=== PATIENT | female | born 1985 | race Caucasian/White ===

== ENCOUNTER → 2018-09-13 09:46 | Outpatient (CLI) | payer OTHER, SELFPAY ==
--- NOTE | 2018-09-13 | DI.RAD.S_ITS ---
PROCEDURE: XR CHEST 2V INDICATIONS: ASTHMA TECHNIQUE: 2 views of the chest were acquired. COMPARISON: None. FINDINGS: Surgical changes and devices: None. Lungs and pleura: No pleural effusions or pneumothorax. Lungs are clear. Mediastinum: Mediastinal contours are normal. Heart size is normal. Bones and chest wall: No suspicious bony abnormalities. Soft tissues appear unremarkable. IMPRESSION: Normal for age, source of current symptoms is not seen. Dictated by: Facundo White M.D. on 09/13/2018 at 9:59 Approved by: Facundo White M.D. on 09/13/2018 at 9:59
== END ==
PROVIDERS: PCP Physician Assistant; Visit Provider Physician Assistant
DX: J45.20 Mild intermittent asthma, uncomplicated (principal)
CPT/HCPCS: 71046

== ENCOUNTER → 2018-12-27 16:01 | Outpatient (CLI) | payer OTHER, SELFPAY ==
--- NOTE | 2018-12-27 | DI.US.S_ITS ---
PROCEDURE: US THYROID INDICATIONS: 1 YEAR FOLLOW UP THYROID NODULE TECHNIQUE: Real-time scanning was performed of the thyroid gland, with image documentation. COMPARISON: [facility], [place], THYROID, 01/18/2018, 16:38. FINDINGS: Right: Thyroid lobe measures 6.0 x 1.3 x 1.8 cm, and is homogeneous in echotexture. Left: Thyroid lobe measures 5.0 x 1.3 x 1.3 cm, and is homogenous in echotexture. Isthmus: 6.0 mm thick. Nodule number: 1 Location: Right mid Size: Unchanged at 1.2 x 0.9 x 1.4 cm. Composition: Predominantly solid Echogenicity: Hypoechoic Shape: wider than tall. Margins: Smooth Echogenic foci: Internal punctate echogenic foci Total points: 7 ACR TI-RADS category: Highly suspicious Nodule number: 2 Location: Left inferior Size: Unchanged at 1.0 x 0.7 x 1.4 cm. Composition: Predominantly solid Echogenicity: Hypoechoic Shape: wider than tall. Margins: Smooth Echogenic foci: Internal echogenic punctate foci Total points: 7 ACR TI-RADS category: Highly suspicious Nodule number: 3 Location: Isthmus Size: Unchanged at 0.9 x 0.5 x 1.1 cm. Composition: Predominantly solid Echogenicity: Hypoechoic Shape: wider than tall. Margins: Smooth Echogenic foci: None Total points: 4 ACR TI-RADS category: Moderately suspicious Nodule number: 4 Location: Left mid to superior Size: Unchanged at 0.8 x 0.5 x 0.8 cm. Composition: Predominantly solid Echogenicity: Hypoechoic Shape: wider than tall. Margins: Smooth Echogenic foci: Internal echogenic punctate foci Total points: 7 ACR TI-RADS category: Highly suspicious IMPRESSION: Stable appearance of bilateral thyroid nodules. Continued sonographic followup recommended. ACR TI-RADS definitions and recommendations: TI-RADS 1 (benign): 0 points. FNA not needed. TI-RADS 2 (not suspicious): 2 points. FNA not needed. TI-RADS 3 (mildly suspicious): 3 points. * FNA if 2.5 cm or larger, follow up if 1.5 cm or larger (at 1, 3, and 5 years). TI-RADS 4 (moderately suspicious): 4-6 points. * FNA if 1.5 cm or larger, follow up if 1 cm or larger (at 1, 2, 3, and 5 years). TI-RADS 5 (highly suspicious): 7 points or more. * FNA if 1 cm or larger, follow up if 0.5 cm or larger (every year for 5 years). Dictated by: Jose ROCK Interpreted: Bishop Heaton MD on 12/27/2018 at 16:56 Approved by: Bishop Heaton M.D. on 12/27/2018 at 18:40
== END ==
PROVIDERS: Family Provider Obstetrics & Gynecology; PCP Physician Assistant; Visit Provider Internal Medicine Endocrinology, Diabetes & Metabolism
DX: E04.2 Nontoxic multinodular goiter (principal)
CPT/HCPCS: 76536

== ENCOUNTER → 2019-08-28 17:08 | Outpatient (CLI) | payer OTHER, SELFPAY ==
--- NOTE | 2019-08-28 17:12 | DI.RAD.S_ITS ---
PROCEDURE: XR CHEST 2V INDICATIONS: Cough, Wheeze, SOB, decreased lung sounds, r/o pnuemonia TECHNIQUE: 2 views of the chest were acquired. COMPARISON: [facility], , XR CHEST 2V, 09/13/2018, 9:48. FINDINGS: Surgical changes and devices: None. Lungs and pleura: Lungs are clear. No pleural effusions or pneumothorax. Mediastinum: Mediastinal contours are normal. Heart size is normal. Bones and chest wall: No suspicious bony abnormalities. Soft tissues appear unremarkable. IMPRESSION: No acute cardiopulmonary pathology. Dictated by: Maycol Rosen M.D. on 08/28/2019 at 17:29 Approved by: Maycol Rosen M.D. on 08/28/2019 at 17:29
== END ==
PROVIDERS: Family Provider Obstetrics & Gynecology; PCP Physician Assistant; Visit Provider Nurse Practitioner
DX: R06.02 Shortness of breath (principal); R05 Cough; R06.2 Wheezing
CPT/HCPCS: 71046

== ENCOUNTER → 2019-12-12 17:12 | Outpatient (CLI) | payer OTHER, SELFPAY | PROVIDERS: Family Provider Obstetrics & Gynecology; PCP Physician Assistant; Visit Provider Physician Assistant | DX: R30.0 Dysuria (principal) | CPT/HCPCS: 87086 ==

== ENCOUNTER → 2019-12-21 12:06 | Outpatient (CLI) | payer OTHER, SELFPAY | PROVIDERS: Family Provider Obstetrics & Gynecology; PCP Nurse Practitioner; Visit Provider Nurse Practitioner | DX: Z11.3 Encounter for screening for infections with a predominantly sexual mode of transmission (principal); Z11.8 Encounter for screening for other infectious and parasitic diseases ==

== ENCOUNTER → 2020-01-11 15:06 | Outpatient (CLI) | payer OTHER, SELFPAY ==
[2020-01-11 15:14] LABS: Bacteria Urine None Seen
[2020-01-11 15:17] LABS: Appearance Urine UA CLEAR; Bilirubin Urine UA NEGATIVE (NEGATIVE); Color Urine UA YELLOW; Glucose Urine UA NEGATIVE (Negative); Ketones Urine UA NEGATIVE (NEGATIVE); Leukocyte Esterase Urine UA NEGATIVE (NEGATIVE); Nitrite Urine UA NEGATIVE (Negative); Occult Blood Urine UA NEGATIVE (Negative); Protein Urine UA NEGATIVE (Negative); Specific Gravity Urine UA 1.015 (1.000-1.035); Urobilinogen Urine UA 0.2 E.U./dL (0.2)
[2020-01-11 15:24] LABS: Culture Indicated Urine Cult Not Indicated; RBC Urine 0-1/HPF (0-5/HPF); Urine Comments Microscopic Normal; WBC Urine 0-1/HPF (0-5/HPF)
== END ==
PROVIDERS: Family Provider Obstetrics & Gynecology; PCP Nurse Practitioner; Visit Provider Nurse Practitioner
DX: R10.13 Epigastric pain (principal); R10.11 Right upper quadrant pain; R10.12 Left upper quadrant pain
CPT/HCPCS: 81001

== ENCOUNTER → 2020-01-12 08:03 | Outpatient (CLI) | payer OTHER, SELFPAY ==
--- NOTE | 2020-01-12 08:05 | DI.US.S_ITS ---
PROCEDURE: US ABDOMEN COMPLETE INDICATIONS: EPIGASTRIC PAIN. RUQ AND LUQ TECHNIQUE: Real-time scanning was performed of the abdominal and retroperitoneal organs, with image documentation. COMPARISON: None. FINDINGS: Liver: Liver is normal in size and homogeneous in echotexture. Gallbladder: No findings of gallstones or sludge are seen. The gallbladder wall is not thickened, measuring 3 mm or less. No specific pericholecystic fluid is seen. The sonographic Eaton sign is reported as positive. However, the patient is reported by the technologist as being tender throughout the abdomen. Therefore, the sonographic Eaton sign is regarded to be equivocal. Biliary ducts: Intrahepatic bile ducts are non-dilated. Extrahepatic bile duct caliber measures 3 mm. Normal is 6-7 mm or less in diameter, or 10 mm or less post-cholecystectomy. Pancreas: Visualized portions of the pancreas are sonographically normal. Spleen: Spleen is normal in size and homogeneous in echotexture. Kidneys: Kidneys are normal in size and echotexture. Right kidney measures 9.7 cm long; left kidney measures 10.2 cm long. No hydronephrosis or nephrolithiasis. No solid masses. Aorta: Visualized aorta is normal in caliber at less than 3 cm. Iliacs: Not seen. IVC: Intrahepatic inferior vena cava is patent. Miscellaneous: No free abdominal fluid. IMPRESSION: Normal appearing gallbladder. The sonographic Eaton sign is regarded to be equivocal, as this patient was tender while scanning over the abdomen. No biliary dilatation. Dictated by: Paolo Carlisle M.D. on 01/12/2020 at 8:21 Approved by: Paolo Carlisle M.D. on 01/12/2020 at 8:22
[2020-01-12 09:31] LABS: Add Manual Diff / Slide Review NO; Basophils Absolute Auto 0 /uL (0-100); Basophils Percent Auto 0.5 % (0-2); Eosinophils Absolute Auto 0 /uL (0-450); Eosinophils Percent Auto 0.5 % (2-4); Hematocrit 42.8 % (36-46); Hemoglobin 14.5 g/dL (12.0-16.0); Lymphocytes Absolute Auto 1400 /uL (1100-4500); Lymphocytes Percent Auto 28.1 % (25-40); Mean Corpuscular Hemoglobin 31.4 PG (26-34); Mean Corpuscular Volume 92.4 fL (80-100); Monocytes Absolute Auto 500 /uL (0-900); Monocytes Percent Auto 11.1 % (3-14); Neutrophils Absolute Auto 2900 /uL (1500-7000); Neutrophils Percent Auto 59.8 % (50-75); Platelet Count 236 X10^3/uL (150-400); Red Blood Cell Count 4.63 X10^6/uL (4.0-5.2); Red Cell Distribution Width 13.2 % (11.6-14.8); White Blood Cell Count 4.8 X10^3/uL (4.5-11.0)
[2020-01-12 09:54] LABS: Alanine Aminotransferase 23 IU/L (<35); Albumin 4.6 g/dL (3.5-5.0); Albumin Globulin Ratio 1.3 (1.0-2.8); Alkaline Phosphatase 69 U/L (38-126); Aspartate Aminotransferase 31 IU/L (14-36); Bilirubin Total 0.8 mg/dL (0.2-1.3); Blood Urea Nitrogen 12 mg/dL (7-17); Calcium 9.6 mg/dL (8.4-10.2); Carbon Dioxide 27 mmol/L (22-32); Chloride 103 mmol/L (98-107); Estimated Glomerular Filt Rate > 60.0 mL/min (>60); Globulin 3.6 g/dL (1.7-4.1); Glucose 94 mg/dL (70-100); HEMOLYSIS < 15 (0-50); Potassium 4.2 mmol/L (3.4-5.1); Sodium 139 mmol/L (137-145); Total Protein 8.2 g/dL (6.3-8.2)
[2020-01-12 10:09] LABS: Free T3, Triiodothyronine Free 3.89 pg/mL (2.77-5.27); Free T4, Direct Thyroxine 1.18 ng/dL (0.78-2.19)
[2020-01-12 10:22] LABS: Thyroid Stimulating Hormone 0.91 uIU/mL (0.47-4.68)
== END ==
PROVIDERS: Family Provider Obstetrics & Gynecology; PCP Nurse Practitioner; Referring Provider Nurse Practitioner; Visit Provider Nurse Practitioner
DX: R10.13 Epigastric pain (principal); R10.12 Left upper quadrant pain; R10.11 Right upper quadrant pain; F41.8 Other specified anxiety disorders; R19.7 Diarrhea, unspecified
CPT/HCPCS: 36415; 76700; 80053; 84439; 84443; 84481; 85025

== ENCOUNTER → 2020-05-08 08:43 | Outpatient (CLI) | payer OTHER, SELFPAY ==
[2020-05-08 10:15] LABS: Basophils Absolute Auto 0 /uL (0-100); Basophils Percent Auto 0.5 % (0-2); Eosinophils Absolute Auto 0 /uL (0-450); Eosinophils Percent Auto 0.4 % (2-4); Hematocrit 42.4 % (36-46); Hemoglobin 14.9 g/dL (12.0-16.0); Lymphocytes Absolute Auto 1200 /uL (1100-4500); Lymphocytes Percent Auto 27.5 % (25-40); Mean Corpuscular HGB Conc 35.1 % (30-36); Mean Corpuscular Hemoglobin 33.2 PG (26-34); Mean Corpuscular Volume 94.6 fL (80-100); Monocytes Absolute Auto 400 /uL (0-900); Monocytes Percent Auto 9.6 % (3-14); Neutrophils Absolute Auto 2600 /uL (1500-7000); Platelet Count 211 X10^3/uL (150-400); Red Blood Cell Count 4.49 X10^6/uL (4.0-5.2); Red Cell Distribution Width 12.8 % (11.6-14.8); White Blood Cell Count 4.2 X10^3/uL (4.5-11.0)
[2020-05-08 10:18] LABS: Add Manual Diff / Slide Review SLIDE REVIEW
[2020-05-08 10:44] LABS: Erythrocyte Sedimentation Rate 2 MM/HR (0-20)
[2020-05-08 10:48] LABS: RBC Morphology Normal Morphology
[2020-05-08 10:57] LABS: Alanine Aminotransferase 21 IU/L (<35); Albumin 4.8 g/dL (3.5-5.0); Albumin Globulin Ratio 1.6 (1.0-2.8); Alkaline Phosphatase 56 U/L (38-126); Aspartate Aminotransferase 27 IU/L (14-36); BUN Creatinine Ratio 18.5 (6-22); Bilirubin Total 0.8 mg/dL (0.2-1.3); Blood Urea Nitrogen 15 mg/dL (7-17); Calcium 9.8 mg/dL (8.4-10.2); Carbon Dioxide 27 mmol/L (22-32); Chloride 102 mmol/L (98-107); Estimated Glomerular Filt Rate > 60.0 mL/min (>60); Glucose 76 mg/dL (70-100); HEMOLYSIS < 15 (0-50); Potassium 4.2 mmol/L (3.4-5.1); Sodium 138 mmol/L (137-145); Total Protein 7.8 g/dL (6.3-8.2)
[2020-05-08 11:01] LABS: C-Reactive Protein Quant < 0.5 mg/dL (<1.0)
[2020-05-08 11:13] LABS: TSH w/ Reflex to FT4 0.73 uIU/mL (0.47-4.68)
[2020-05-09 02:36] LABS: Immunoglobulin A 173 mg/dL (87-352)
[2020-05-09 16:10] LABS: Fecal Immunochemical Test Negative (Negative)
[2020-05-10 14:17] LABS: Lactoferrin, Fecal Quant <1.00 ug/mL(g) (0.00-7.24)
[2020-05-10 17:16] LABS: Tissue Transglutaminase IgA <2 U/mL (0-3)
== END ==
PROVIDERS: Family Provider Obstetrics & Gynecology; PCP Nurse Practitioner; Referring Provider Physician Assistant; Visit Provider Physician Assistant
DX: K59.1 Functional diarrhea (principal); R14.0 Abdominal distension (gaseous); R11.0 Nausea
CPT/HCPCS: 36415; 80053; 82274; 82784; 83516; 83631; 84443; 85025; 85651; 86140

== ENCOUNTER → 2021-01-13 10:53 | Outpatient (CLI) | payer OTHER, SELFPAY ==
[2021-01-13 12:21] LABS: HEMOLYSIS < 15 (0-50); Magnesium 2.2 mg/dL (1.6-2.3); Potassium 4.5 mmol/L (3.4-5.1)
== END ==
PROVIDERS: Family Provider Obstetrics & Gynecology; PCP Nurse Practitioner; Referring Provider Nurse Practitioner; Visit Provider Nurse Practitioner
DX: E27.9 Disorder of adrenal gland, unspecified (principal); I95.1 Orthostatic hypotension; R42 Dizziness and giddiness; Z79.899 Other long term (current) drug therapy
CPT/HCPCS: 36415; 83735; 84132

== ENCOUNTER → 2021-03-21 16:10 | Outpatient (CLI) | payer OTHER, SELFPAY ==
--- NOTE | 2021-03-21 16:11 | DI.US.S_ITS ---
PROCEDURE: US THYROID INDICATIONS: f/up nodules TECHNIQUE: Real-time scanning was performed of the thyroid gland, with image documentation. COMPARISON: [facility], [place], THYROID, 01/18/2018, 16:38. [facility], [place], US THYROID, 12/27/2018, 16:19. FINDINGS: Right: Thyroid lobe measures 5.9 x 2.1 x 1.3 cm, and is homogeneous in echotexture. Left: Thyroid lobe measures 5.5 x 1.6 x 1.3 cm, and is homogenous in echotexture. Isthmus: 6 mm thick. Nodule number: 1 Location: Upper pole of the right thyroid lobe Size: 1.3 x 1.0 x 1.0 cm; previously 1.2 x 0.9 x 1.4 cm. Composition: Solid Echogenicity: Hypoechoic Shape: wider than tall. Margins: Small Echogenic foci: Punctate Total points: 7 ACR TI-RADS category: Highly suspicious. Nodule number: 2 Location: Inferior pole of the left thyroid lobe Size: 0.5 x 0.7 x 1.4 cm; previously 1.0 x 0.7 x 1.4 cm. Composition: Solid Echogenicity: Hypoechoic Shape: wider than tall. Margins: Small Echogenic foci: Punctate Total points: 7 ACR TI-RADS category: Highly suspicious. Nodule number: 3 Location: Superior pole of the left thyroid lobe Size: 1.2 x 0.4 x 0.8 cm; previously 0.9 x 0.5 x 1.1 cm. Composition: Solid Echogenicity: Hypoechoic Shape: wider than tall. Margins: Small Echogenic foci: Absent Total points: 4 ACR TI-RADS category: Moderately suspicious. Nodule number: 4 Location: Mid left thyroid lobe Size: 0.9 x 0.5 x 0.5 cm; previously 0.8 x 0.5 x 0.8 cm. Composition: Solid Echogenicity: Hypoechoic Shape: wider than tall. Margins: Small Echogenic foci: Punctate Total points: 7 ACR TI-RADS category: Moderately suspicious. IMPRESSION: Stable suspicious pulmonary nodules as described. Continued ultrasound follow-up recommended. Next follow-up ultrasound is suggested in 12 months. ACR TI-RADS definitions and recommendations: TI-RADS 1 (benign): 0 points. FNA not needed. TI-RADS 2 (not suspicious): 2 points. FNA not needed. TI-RADS 3 (mildly suspicious): 3 points. * FNA if 2.5 cm or larger, follow up if 1.5 cm or larger (at 1, 3, and 5 years). TI-RADS 4 (moderately suspicious): 4-6 points. * FNA if 1.5 cm or larger, follow up if 1 cm or larger (at 1, 2, 3, and 5 years). TI-RADS 5 (highly suspicious): 7 points or more. * FNA if 1 cm or larger, follow up if 0.5 cm or larger (every year for 5 years). Dictated by: Bishop Heaton M.D. on 03/21/2021 at 22:44 Approved by: Bishop Heaton M.D. on 03/22/2021 at 8:16
== END ==
PROVIDERS: Family Provider Obstetrics & Gynecology; PCP Nurse Practitioner; Referring Provider Nurse Practitioner; Visit Provider Nurse Practitioner
DX: E04.2 Nontoxic multinodular goiter (principal)
CPT/HCPCS: 76536

== ENCOUNTER → 2021-05-14 08:40 | Outpatient (CLI) | payer OTHER, SELFPAY ==
[2021-05-14 09:24] LABS: Add Manual Diff / Slide Review NO; Basophils Absolute Auto 0 /uL (0-100); Basophils Percent Auto 0.4 % (0-2); Eosinophils Absolute Auto 0 /uL (0-450); Eosinophils Percent Auto 0.7 % (2-4); Hematocrit 42.1 % (36-46); Hemoglobin 14.4 g/dL (12.0-16.0); Lymphocytes Absolute Auto 1300 /uL (1100-4500); Lymphocytes Percent Auto 23.2 % (25-40); Mean Corpuscular HGB Conc 34.2 % (30-36); Mean Corpuscular Hemoglobin 32.3 PG (26-34); Mean Corpuscular Volume 94.4 fL (80-100); Monocytes Absolute Auto 400 /uL (0-900); Monocytes Percent Auto 6.7 % (3-14); Neutrophils Absolute Auto 3700 /uL (1500-7000); Platelet Count 200 X10^3/uL (150-400); Red Blood Cell Count 4.46 X10^6/uL (4.0-5.2); Red Cell Distribution Width 12.7 % (11.6-14.8); White Blood Cell Count 5.4 X10^3/uL (4.5-11.0)
[2021-05-14 09:51] LABS: Alanine Aminotransferase 19 IU/L (<35); Albumin Globulin Ratio 1.2 (1.0-2.8); Alkaline Phosphatase 49 U/L (38-126); Aspartate Aminotransferase 29 IU/L (14-36); BUN Creatinine Ratio 13.1 (6-22); Bilirubin Total 0.7 mg/dL (0.2-1.3); Blood Urea Nitrogen 11 mg/dL (7-17); Calcium 9.4 mg/dL (8.4-10.2); Carbon Dioxide 28 mmol/L (22-32); Chloride 103 mmol/L (98-107); Cholesterol 200 mg/dL (140-199); Estimated Glomerular Filt Rate > 60.0 mL/min (>60); Globulin 3.3 g/dL (1.7-4.1); Glucose 89 mg/dL (70-100); HDL Cholesterol 92 mg/dL (40-60); HEMOLYSIS < 15 (0-50); LDL Cholesterol Calculated 96 mg/dL (<100); Potassium 4.6 mmol/L (3.4-5.1); Sodium 135 mmol/L (137-145); Total Protein 7.3 g/dL (6.3-8.2); Triglycerides 61 mg/dL (35-150)
[2021-05-14 10:05] LABS: Free T3, Triiodothyronine Free 2.91 pg/mL (2.77-5.27); Free T4, Direct Thyroxine 0.92 ng/dL (0.78-2.19)
[2021-05-14 10:18] LABS: Thyroid Stimulating Hormone 0.616 uIU/mL (0.47-4.68)
== END ==
PROVIDERS: Family Provider Obstetrics & Gynecology; PCP Nurse Practitioner; Referring Provider Nurse Practitioner; Visit Provider Nurse Practitioner
DX: Z00.00 Encounter for general adult medical examination without abnormal findings (principal); E27.9 Disorder of adrenal gland, unspecified; F41.8 Other specified anxiety disorders; I95.1 Orthostatic hypotension
CPT/HCPCS: 36415; 80053; 80061; 84439; 84443; 84481; 85025

== ENCOUNTER → 2022-07-14 13:17 | Outpatient (CLI) | payer OTHER, SELFPAY | PROVIDERS: Family Provider Obstetrics & Gynecology; PCP Nurse Practitioner; Visit Provider Obstetrics & Gynecology | DX: R31.9 Hematuria, unspecified (principal) | CPT/HCPCS: 87077; 87086; 87147 ==

== ENCOUNTER → 2023-05-26 10:56 | Outpatient (CLI) | payer OTHER, SELFPAY ==
--- NOTE | 2023-05-26 10:57 | DI.US.S_ITS ---
PROCEDURE: US THYROID INDICATIONS: FOLLOW UP THYROID NODULES TECHNIQUE: Real-time scanning was performed of the thyroid gland, with image documentation. COMPARISON: [facility], [place], US THYROID, 03/21/2021, 15:36. FINDINGS: Right: Thyroid lobe measures 5.7 x 1.5 x 2.1 cm, and is homogeneous in echotexture. Left: Thyroid lobe measures 5.1 x 1.3 x 1.5 cm, and is homogenous in echotexture. Isthmus: 0.3 mm thick. Nodule number: 1 Location: Right mid thyroid Size: 1.5 x 1.0 x 1.0 cm compared to 1.3 x 1.0 x 1.0 cm. Composition: Solid Echogenicity: Hypoechoic Shape: wider than tall. Margins: Smooth Echogenic foci: Punctate Total points: 7 ACR TI-RADS category: 5 Nodule number: 2 Location: Left isthmus Size: 1.1 x 0.6 x 0.8 cm compared to 1.2 x 0.4 x 0.8 cm cm. Composition: Solid Echogenicity: Hypoechoic Shape: wider than tall. Margins: Smooth Echogenic foci: None Total points: 4 ACR TI-RADS category: 4 Nodule number: 3 Location: Left mid Size: 0.7 x 0.4 x 0.7 cm compared to 0.9 x 0.5 x 0.5 cm. Composition: Solid Echogenicity: Hypoechoic Shape: wider than tall. Margins: Smooth Echogenic foci: Punctate Total points: 7 ACR TI-RADS category: 5 Nodule number: 4 Location: Left thyroid inferior Size: 1.5 x 0.7 x 1.0 cm compared to 1.0 x 0.7 x 1.4 cm. Composition: Solid Echogenicity: Hypoechoic Shape: wider than tall. Margins: Smooth Echogenic foci: Punctate Total points: 7 ACR TI-RADS category: 5 Nodule number: 5 Location: Right mid Size: 1.3 x 0.9 x 1.1 cm. Composition: Predominantly solid Echogenicity: Hypoechoic Shape: wider than tall. Margins: Smooth Echogenic foci: Punctate Total points: 7 ACR TI-RADS category: 5 Nodule number: 6 Location: Right superior mid Size: 1.2 x 0.6 x 1.0 cm compared to 1.1 x 0.5 x 0.7 cm. Composition: Predominantly solid Echogenicity: Hypoechoic Shape: wider than tall. Margins: Smooth Echogenic foci: Punctate Total points: 7 ACR TI-RADS category: 5 Nodule number: 7 Location: Right mid inferior Size: 1.4 x 0.7 x 0.8 cm. Composition: Predominantly solid Echogenicity: Hypoechoic Shape: wider than tall. Margins: Smooth Echogenic foci: Punctate Total points: 7 ACR TI-RADS category: 5 IMPRESSION: Lesion 2 is considered category 4 and stable. Recommend interval follow-up at 1, 2, 3 and 5 years from initial visualization. Lesions 1, 3, 4 and 6 are stable. Continued annual follow-up. Lesions 5 and 7 are considered new. Secondary to size, FNA is recommended. ACR TI-RADS definitions and recommendations: TI-RADS 1 (benign): 0 points. FNA not needed. TI-RADS 2 (not suspicious): 2 points. FNA not needed. TI-RADS 3 (mildly suspicious): 3 points. * FNA if 2.5 cm or larger, follow up if 1.5 cm or larger (at 1, 3, and 5 years). TI-RADS 4 (moderately suspicious): 4-6 points. * FNA if 1.5 cm or larger, follow up if 1 cm or larger (at 1, 2, 3, and 5 years). TI-RADS 5 (highly suspicious): 7 points or more. * FNA if 1 cm or larger, follow up if 0.5 cm or larger (every year for 5 years). Dictated by: Jaclyn Up M.D. on 05/26/2023 at 21:27 Approved by: Jaclyn Up M.D. on 05/26/2023 at 21:33
[2023-05-26 12:34] LABS: Add Manual Diff / Slide Review NO; Basophils Absolute Auto 0 /uL (0-100); Basophils Percent Auto 0.1 % (0-2); Eosinophils Absolute Auto 0 /uL (0-450); Eosinophils Percent Auto 0.4 % (2-4); Hematocrit 37.2 % (36-46); Hemoglobin 12.5 g/dL (12.0-16.0); Lymphocytes Absolute Auto 1200 /uL (1100-4500); Lymphocytes Percent Auto 16.4 % (25-40); Mean Corpuscular HGB Conc 33.7 % (30-36); Mean Corpuscular Hemoglobin 31.6 PG (26-34); Mean Corpuscular Volume 93.7 fL (80-100); Monocytes Absolute Auto 400 /uL (0-900); Monocytes Percent Auto 5.6 % (3-14); Neutrophils Absolute Auto 5900 /uL (1500-7000); Neutrophils Percent Auto 77.5 % (50-75); Platelet Count 181 X10^3/uL (150-400); Red Blood Cell Count 3.97 X10^6/uL (4.0-5.2); Red Cell Distribution Width 13.4 % (11.6-14.8); White Blood Cell Count 7.6 X10^3/uL (4.5-11.0)
[2023-05-26 12:44] LABS: Alanine Aminotransferase 18 IU/L (<35); Albumin 3.9 g/dL (3.5-5.0); Albumin Globulin Ratio 1.3 (1.0-2.8); Alkaline Phosphatase 48 U/L (38-126); Aspartate Aminotransferase 22 IU/L (14-36); BUN Creatinine Ratio 13.9 (6-22); Bilirubin Total 0.4 mg/dL (0.2-1.3); Blood Urea Nitrogen 11 mg/dL (7-17); Carbon Dioxide 30 mmol/L (22-32); Chloride 103 mmol/L (98-107); Estimated Glomerular Filt Rate > 60 mL/min (>60); Globulin 3.1 g/dL (1.7-4.1); Glucose 85 mg/dL (70-100); HEMOLYSIS < 15 (0-50); Potassium 4.3 mmol/L (3.4-5.1); Sodium 137 mmol/L (137-145)
[2023-05-26 13:10] LABS: Thyroid Stimulating Hormone 0.825 uIU/mL (0.47-4.68)
== END ==
PROVIDERS: Family Provider Obstetrics & Gynecology; PCP Nurse Practitioner; Referring Provider Nurse Practitioner; Visit Provider Nurse Practitioner
DX: E04.2 Nontoxic multinodular goiter (principal)
CPT/HCPCS: 36415; 76536; 80053; 84439; 84443; 85025

== ENCOUNTER → 2023-06-22 16:58 | Outpatient (CLI) | payer OTHER, SELFPAY | PROVIDERS: Family Provider Obstetrics & Gynecology; PCP Nurse Practitioner; Visit Provider Physician Assistant | DX: N39.0 Urinary tract infection, site not specified (principal); N89.8 Other specified noninflammatory disorders of vagina | CPT/HCPCS: 87086; 87210 ==

== ENCOUNTER → 2023-07-07 12:45 | Outpatient (CLI) | payer OTHER, SELFPAY ==
--- NOTE | 2023-07-07 | PATH_ITS ---
Note [facility] Accession Number: [id number] TESTS RESULT FLAG UNITS REF RANGE LAB Clinician Provided Cytology Information No. of containers..08 Previously Prepared Cytology Slide 35 Unknown Storage/container code(s) Source: RIGHT MID NODULE #5 DIAGNOSIS: RIGHT MID NODULE #5 NEGATIVE FOR MALIGNANT CELLS. BETHESDA CATEGORY II. SPECIMEN CONSISTS OF BENIGN FOLLICULAR CELLS, HEMOSIDERIN-LADEN MACROPHAGES, AND COLLOID. THIS PATTERN IS CONSISTENT WITH A BENIGN FOLLICULAR NODULE. Pathologist ICD10: E04.1 Signed out by: Ayla Godoy MD, Pathologist NPI- [id number] Performed by: Domenic Lau, [place] [facility] ([facility]) Gross description: 30 CC, RED, HAZY RECIEVED: IN CYTOLYT WITH 9 ALCOHOL FIXED AND 9 QUICK STAINED SLIDES ALSO 1 RNA VIAL WAS RECEIVED.VO /VDU 07/08/2023 0536 [facility] FLAG LEGEND: L-Low Normal,H-High Normal,LL-Alert Low,HH-Alert High <-Panic Low,>-Panic High,A-Abnormal,AA-Critical Abnormal Performed at: 01 [facility] [address], [place] [address] Iftikhar Knowles MD, Performed at: 01 [facility] [address], [place], [place] [id number] MD Iftikhar Knowles MD Phone: [phone]
--- NOTE | 2023-07-07 12:46 | DI.US.S_ITS ---
PROCEDURE: US FINE NEEDLE ASPIRATION INDICATIONS: FINE NEEDLE ASPIRATION RIGHT NODULE #5 AND CONSULT FOR ASPIRATION #7 TECHNIQUE: The indications, alternatives, benefits, risks, and complications of the procedure were explained to the patient. Written informed consent was obtained and placed in the chart. The thyroid region was examined sonographically and a site was chosen for ultrasound guided percutaneous sampling. The skin was prepared and draped in the usual fashion, and anesthetized with 1% lidocaine infiltrated from the skin down to the thyroid gland. Multiple passes were then performed, with contents emptied into an appropriate pathology specimen container. A bandage was applied to the area of access at completion of the study. COMPARISON: None. FINDINGS: Location(s) of lesion(s) sampled: Right mid/inferior (referred as #5 on the ultrasound dated 05/26/2023) Mcandrews: 25 gauge hypodermic needles. Number of passes: 10 x Medications: 1% lidocaine for local anaesthesia. Complications: None. IMPRESSION: 1 Successful ultrasound-guided thyroid nodule fine needle aspiration, with cytology results pending. Please see chart below for management recommendations based on cytology results. 2. Nodule #7 cannot be not biopsied as the nodule is behind nodule #5. Recommend ultrasound surveillance. [facility] ReportingRecommendationsNon-diagnostic* Repeat US-guided FNA, with on-site cytology evaluation if possible. * Repeated non-diagnostic nodules without high suspicion US features: close observation vs surgical consult. * Consider surgery if nodule has high suspicion US features, grows >20% in 2 dimensions on followup, or patient has clinical risk factors for malignancy. Benign* If nodule has high suspicion US features: repeat US and FNA within 12 months. * If nodule has low to intermediate suspicion US features: repeat US at 12-24 months. If nodule grows (20% increase in at least 2 dimensions, with minimal increase of 2 mm or >50% change in volume), or development of new suspicious US features, then repeat FNA or continue followup. * If nodule has very low suspicion US features: followup US at >24 months. Atypia of undetermined significance, follicular lesion of undetermined significanceRepeat FNA, molecular testing, followup US, or surgical consult.Follicular neoplasm, suspicious for follicular neoplasmSurgical consult; also consider molecular testing. Suspicious for malignancySurgical consult.MalignantSurgical consult. Dictated by: Bishop Heaton M.D. on 07/07/2023 at 15:20 Approved by: Bishop Heaton M.D. on 07/07/2023 at 15:23
== END ==
PROVIDERS: Family Provider Obstetrics & Gynecology; PCP Nurse Practitioner; Referring Provider Nurse Practitioner; Visit Provider Nurse Practitioner
DX: E04.2 Nontoxic multinodular goiter (principal)
CPT/HCPCS: 10005

== ENCOUNTER → 2023-07-11 09:59 | Outpatient (CLI) | payer OTHER, SELFPAY | PROVIDERS: Family Provider Obstetrics & Gynecology; PCP Nurse Practitioner; Visit Provider Registered Nurse | DX: R10.9 Unspecified abdominal pain (principal) | CPT/HCPCS: 87077; 87086; 87186 ==

== ENCOUNTER → 2023-07-19 15:50 | Outpatient (CLI) | payer OTHER, SELFPAY | PROVIDERS: Family Provider Obstetrics & Gynecology; PCP Nurse Practitioner; Visit Provider Family Medicine | DX: N89.8 Other specified noninflammatory disorders of vagina (principal) | CPT/HCPCS: 87070; 87205 ==

== ENCOUNTER → 2023-11-10 12:17 | Outpatient (CLI) | payer OTHER, SELFPAY ==
[2023-11-10 12:57] LABS: Add Manual Diff / Slide Review NO; Basophils Absolute Auto 0 /uL (0-100); Basophils Percent Auto 0.3 % (0-2); Eosinophils Absolute Auto 0 /uL (0-450); Eosinophils Percent Auto 0.2 % (2-4); Hematocrit 38.6 % (36-46); Hemoglobin 13.1 g/dL (12.0-16.0); Lymphocytes Absolute Auto 1100 /uL (1100-4500); Lymphocytes Percent Auto 16.3 % (25-40); Mean Corpuscular HGB Conc 33.9 % (30-36); Mean Corpuscular Hemoglobin 31.5 PG (26-34); Mean Corpuscular Volume 92.8 fL (80-100); Monocytes Absolute Auto 400 /uL (0-900); Monocytes Percent Auto 6.2 % (3-14); Neutrophils Absolute Auto 5000 /uL (1500-7000); Platelet Count 231 X10^3/uL (150-400); Red Blood Cell Count 4.15 X10^6/uL (4.0-5.2); Red Cell Distribution Width 13.1 % (11.6-14.8); White Blood Cell Count 6.5 X10^3/uL (4.5-11.0)
[2023-11-10 13:12] LABS: Alanine Aminotransferase 18 IU/L (<35); Albumin Globulin Ratio 1.3 (1.0-2.8); Alkaline Phosphatase 46 U/L (38-126); Aspartate Aminotransferase 24 IU/L (14-36); BUN Creatinine Ratio 12.5 (6-22); Bilirubin Total 0.7 mg/dL (0.2-1.3); Blood Urea Nitrogen 9 mg/dL (7-17); Calcium 9.2 mg/dL (8.4-10.2); Carbon Dioxide 29 mmol/L (22-32); Chloride 104 mmol/L (98-107); Estimated Glomerular Filt Rate > 60 mL/min (>60); Globulin 3.1 g/dL (1.7-4.1); Glucose 99 mg/dL (70-100); HEMOLYSIS < 15 (0-50); Potassium 3.8 mmol/L (3.4-5.1); Sodium 138 mmol/L (137-145); Total Protein 7.1 g/dL (6.3-8.2)
[2023-11-10 13:30] LABS: Free T3, Triiodothyronine Free 2.91 pg/mL (2.77-5.27)
[2023-11-10 13:43] LABS: Thyroid Stimulating Hormone 0.409 uIU/mL (0.47-4.68)
== END ==
PROVIDERS: Family Provider Obstetrics & Gynecology; PCP Nurse Practitioner; Referring Provider Nurse Practitioner; Visit Provider Nurse Practitioner
DX: R42 Dizziness and giddiness (principal); I49.8 Other specified cardiac arrhythmias; I95.1 Orthostatic hypotension; F41.8 Other specified anxiety disorders
CPT/HCPCS: 36415; 80053; 84439; 84443; 84481; 85025

== ENCOUNTER → 2023-12-23 10:46 | Outpatient (CLI) | payer OTHER, SELFPAY ==
[2023-12-23 12:35] LABS: Free T3, Triiodothyronine Free 3.45 pg/mL (2.77-5.27); Free T4, Direct Thyroxine 0.95 ng/dL (0.78-2.19)
[2023-12-23 12:48] LABS: Thyroid Stimulating Hormone 0.228 uIU/mL (0.47-4.68)
== END ==
PROVIDERS: Family Provider Obstetrics & Gynecology; PCP Nurse Practitioner; Referring Provider Nurse Practitioner; Visit Provider Nurse Practitioner
DX: R42 Dizziness and giddiness (principal); R11.0 Nausea
CPT/HCPCS: 36415; 84439; 84443; 84481

== ENCOUNTER → 2024-03-07 13:59 | Outpatient (CLI) | payer OTHER, SELFPAY ==
[2024-03-07 15:16] LABS: Alanine Aminotransferase 18 IU/L (<35); Albumin 4.6 g/dL (3.5-5.0); Albumin Globulin Ratio 1.4 (1.0-2.8); Alkaline Phosphatase 55 U/L (38-126); Aspartate Aminotransferase 26 IU/L (14-36); BUN Creatinine Ratio 13.9 (6-22); Bilirubin Total 0.7 mg/dL (0.2-1.3); Blood Urea Nitrogen 10 mg/dL (7-17); Calcium 9.7 mg/dL (8.4-10.2); Carbon Dioxide 27 mmol/L (22-32); Chloride 105 mmol/L (98-107); Estimated Glomerular Filt Rate > 60 mL/min (>60); Globulin 3.2 g/dL (1.7-4.1); Glucose 89 mg/dL (70-100); HEMOLYSIS < 15 (0-50); Magnesium 2.2 mg/dL (1.6-2.3); Potassium 4.6 mmol/L (3.4-5.1); Sodium 137 mmol/L (137-145); Total Protein 7.8 g/dL (6.3-8.2)
[2024-03-07 15:29] LABS: Free T3, Triiodothyronine Free 4.91 pg/mL (2.77-5.27); Free T4, Direct Thyroxine 1.47 ng/dL (0.78-2.19)
== END ==
PROVIDERS: Family Provider Obstetrics & Gynecology; PCP Nurse Practitioner; Referring Provider Nurse Practitioner; Visit Provider Nurse Practitioner
DX: E04.1 Nontoxic single thyroid nodule (principal); F41.8 Other specified anxiety disorders; I49.8 Other specified cardiac arrhythmias; Z79.899 Other long term (current) drug therapy
CPT/HCPCS: 36415; 80053; 83735; 84439; 84443; 84481

== ENCOUNTER → 2024-03-13 14:35 | Outpatient (CLI) | payer OTHER, SELFPAY ==
[2024-03-13 19:09] LABS: Influenza A - CEPHEID Flu A NEGATIVE (NEGATIVE); Influenza B - CEPHEID Flu B NEGATIVE (NEGATIVE); Respiratory Syncytial Virus Negative (Negative)
[2024-03-13 19:20] LABS: COVID-19 CEPHEID 4-PLEX PCR Negative (Negative)
== END ==
PROVIDERS: Family Provider Obstetrics & Gynecology; PCP Nurse Practitioner; Visit Provider Nurse Practitioner Family
DX: R05.1 Acute cough (principal); J02.9 Acute pharyngitis, unspecified
CPT/HCPCS: 0241U; 87070

== ENCOUNTER → 2024-06-05 08:18 | Outpatient (CLI) | payer OTHER, SELFPAY ==
--- NOTE | 2024-06-05 10:14 | DI.MRI.S_ITS ---
PROCEDURE: MR ORBITS FACE NECK WO/W CON INDICATIONS: Please evaluate for malignancy of the thyroid gland TECHNIQUE: Sagittal/axial/coronal T1 spin echo and STIR. After the administration of contrast, axial/coronal/sagittal T1 fast spin echo with fat saturation through the neck. COMPARISON: [facility], US, US THYROID, 05/26/2023, 11:10. [facility], CT, CT ANGIO CHEST PE, 02/16/2023, 20:41. [facility], US, US FINE NEEDLE ASPIRATION, 07/07/2023, 13:22. [facility], MR, MR BRAIN (PITUITARY) WWO CON, 06/05/2024, 8:43. FINDINGS: Image quality: This examination is limited by involuntary motion artifact. Lymph nodes: No enlarged nodes are seen throughout the neck. Vessels: Visualized vasculature appears normal, with normal flow voids and enhancement. Neck spaces: The oropharynx, nasopharynx and pharynx are unremarkable, without mucosal lesions seen. Vocal cords, false vocal cords, pyriform sinuses, epiglottis, vallecula, and tongue base all appear normal. Extramucosal spaces of the neck also appear unremarkable. Glands: In this patient with this given history, scrutiny is given to the thyroid. The thyroid is not enlarged. Within the right thyroid, there is a T1 hyperintense/T2 hyperintense nodule seen that measures up to 8 mm. The parotid and submandibular glands appear normal. Miscellaneous: Visualized brain and orbits appear normal. Lung apices appear clear. Superficial soft tissues appear normal. Visualized sinuses and mastoids appear clear. Bones: Marrow has normal overall signal. IMPRESSION: There is an 8 mm right thyroid nodule seen on this MRI. This patient has suffered nodules of better seen by prior ultrasound. No soft tissue masses or enlarged lymph nodes are detected. Dictated by: Paolo Carlisle M.D. on 06/05/2024 at 10:05 Approved by: Paolo Carlisle M.D. on 06/05/2024 at 10:11
--- NOTE | 2024-06-05 10:15 | DI.MRI.S_ITS ---
PROCEDURE: MR BRAIN (PITUITARY) WWO CON INDICATIONS: rule out pituitary adenoma due to symptoms TECHNIQUE: Noncontrast sagittal and axial FLAIR, axial gradient echo, axial diffusion and ADC through the brain. Thin-slice sagittal and coronal T1 spin echo, coronal T2 fast spin echo through the pituitary. After the administration contrast, optional dynamic coronal T1 spin echo, thin-slice coronal and sagittal T1 spin echo images through the pituitary fossa; axial and coronal and sagittal T1 spin echo with fat saturation through the brain. COMPARISON: [facility], MR, MR ORBITS FACE NECK WO/W CON, 06/05/2024, 8:43. [facility], MR, BRAIN WITHOUT CONTRAST, 07/21/2016, 16:15. FINDINGS: Image quality: Diagnostic Pituitary Gland: The pituitary gland demonstrates normal signal and bulk. On the postcontrast imaging, no masses or abnormally enhancing areas are seen. The pituitary stalk and infundibulum have an unremarkable appearance. A normal appearing pituitary bright spot is seen posteriorly on the precontrast sagittal T1-weighted images. The optic chiasm and the ventral forebrain have an unremarkable appearance. CSF Spaces: Ventricles are normal in size and shape. Basal cisterns are patent. No extra-axial fluid collections. Brain: No intracranial bleeds or mass effects. No abnormal intracranial enhancement. Razo-white matter interface is intact. Diffusion weighted images demonstrate no acute ischemic insults. Brainstem is normal. Normal intravascular flow voids are present. Skull and face: Calvarial marrow is normal in signal. Orbits appear normal. Sinuses: Sinuses and mastoids are clear. IMPRESSION: Normal pituitary MRI, without masses or abnormal enhancement seen. Dictated by: Paolo Carlisle M.D. on 06/05/2024 at 10:11 Approved by: Paolo Carlisle M.D. on 06/05/2024 at 10:12
[2024-06-05 10:19] LABS: Follicle Stimulating Hormone < 0.66 mIU/mL; Luteinizing Hormone < 0.216 mIU/mL; Progesterone, Total 1.78 ng/mL
[2024-06-05 14:48] LABS: BUN Creatinine Ratio 13.2 (6-22); Blood Urea Nitrogen 12 mg/dL (7-17); Calcium 8.8 mg/dL (8.4-10.2); Carbon Dioxide 25 mmol/L (22-32); Chloride 104 mmol/L (98-107); Estimated Glomerular Filt Rate > 60 mL/min (>60); Glucose 107 mg/dL (70-100); HEMOLYSIS < 15 (0-50); Potassium 4.4 mmol/L (3.4-5.1); Sodium 136 mmol/L (137-145)
[2024-06-05 14:54] LABS: Prolactin 16.8 ng/mL (3.0-18.6)
[2024-06-05 15:07] LABS: Cortisol AM (Before 10AM) 34.6 ug/dL (4.46-22.7)
[2024-06-05 15:09] LABS: Testosterone 35.2 ng/dL (5.71-77.0)
[2024-06-06 08:10] LABS: Adrenocorticotropic Hormone 18.9 pg/mL (7.2-63.3)
[2024-06-06 21:40] LABS: IGF-1 123 ng/mL (79-259)
[2024-06-07 16:12] LABS: Growth Hormone 0.1 ng/mL (0.0-10.0)
[2024-06-09 07:36] LABS: Estrogen 89 pg/mL (.)
== END ==
PROVIDERS: Family Provider Obstetrics & Gynecology; PCP Nurse Practitioner; Referring Provider Nurse Practitioner; Visit Provider Nurse Practitioner
DX: E27.9 Disorder of adrenal gland, unspecified (principal); E23.7 Disorder of pituitary gland, unspecified; R89.9 Unspecified abnormal finding in specimens from other organs, systems and tissues; E04.1 Nontoxic single thyroid nodule; R53.83 Other fatigue; I49.8 Other specified cardiac arrhythmias; I95.1 Orthostatic hypotension; R42 Dizziness and giddiness; N92.6 Irregular menstruation, unspecified; N95.1 Menopausal and female climacteric states; R23.2 Flushing; Z80.8 Family history of malignant neoplasm of other organs or systems
CPT/HCPCS: 36415; 70543; 70553; 80048; 82024; 82533; 82672; 83001; 83002; 84144; 84146; 84305; 84403; 86277; A9579

== ENCOUNTER → 2025-10-09 11:48 | Outpatient (CLI) | payer OTHER, SELFPAY ==
[2025-10-09 12:41] LABS: Add Manual Diff / Slide Review NO; Hematocrit 37.6 % (36-46); Hemoglobin 12.9 g/dL (12.0-16.0); Lymphocytes Absolute Auto 1100 /uL (1100-4500); Mean Corpuscular HGB Conc 34.4 % (30-36); Mean Corpuscular Hemoglobin 31.7 PG (26-34); Mean Corpuscular Volume 92.1 fL (80-100); Platelet Count 228 X10^3/uL (150-400)
[2025-10-09 13:04] LABS: HEMOLYSIS < 15 (0-50); Iron 150 ug/dL (37-170)
[2025-10-09 13:07] LABS: Alanine Aminotransferase 14 IU/L (<35); Albumin 4.1 g/dL (3.5-5.0); Albumin Globulin Ratio 1.4 (1.0-2.8); Alkaline Phosphatase 53 U/L (38-126); Blood Urea Nitrogen 9 mg/dL (7-17); Calcium 9.0 mg/dL (8.4-10.2); Carbon Dioxide 27 mmol/L (22-32); Chloride 104 mmol/L (98-107); Estimated Glomerular Filt Rate > 60 mL/min (>60); Globulin 3.0 g/dL (1.7-4.1); Glucose 88 mg/dL (70-99); HEMOLYSIS < 15 (0-50); Potassium 4.1 mmol/L (3.4-5.1); Sodium 138 mmol/L (137-145); Total Protein 7.1 g/dL (6.3-8.2)
[2025-10-09 13:22] LABS: Free T3, Triiodothyronine Free 3.33 pg/mL (2.77-5.27); Percent Iron Saturation 51 % (15-50); Total Iron Binding Capacity 292 ug/dL (265-497); Transferrin 247 mg/dL (206-381)
[2025-10-09 13:36] LABS: TSH w/ Reflex to FT4 0.84 uIU/mL (0.47-4.68)
[2025-10-09 13:41] LABS: Ferritin 76 ng/mL (6-137)
== END ==
PROVIDERS: Family Provider Obstetrics & Gynecology; PCP Family Medicine; Referring Provider Physician Assistant; Visit Provider Physician Assistant
DX: R79.89 Other specified abnormal findings of blood chemistry (principal); Z80.8 Family history of malignant neoplasm of other organs or systems; E04.1 Nontoxic single thyroid nodule; G43.911 Migraine, unspecified, intractable, with status migrainosus; R53.83 Other fatigue
CPT/HCPCS: 36415; 80053; 82728; 83540; 83550; 83937; 84443; 84481; 85025; 86376

== ENCOUNTER → 2025-10-23 13:52 | Outpatient (CLI) | payer OTHER, SELFPAY ==
--- NOTE | 2025-10-23 13:53 | DI.US.S_ITS ---
PROCEDURE: US THYROID INDICATIONS: multiple thyroid nodules - survellience US TECHNIQUE: Real-time scanning was performed of the thyroid gland, with image documentation. COMPARISON: [facility], US, US THYROID, 05/26/2023, 11:10. FINDINGS: Thyroid: Right lobe measures 0.5 x 1.7 x 2.1 cm. Left lobe measures 5.2 x 1.3 x 1.5 cm. Isthmus is 0.4 cm thick. Echotexture is homogeneous. Nodule number: 1 Location: Right mid Size: Stable 1.4 cm. Composition: Solid Echogenicity: Hypoechoic Shape: wider than tall. Margins: Smooth Echogenic foci: None Total points: 4 ACR TI-RADS category: 4, moderately suspicious Nodule number: 2 Location: Left isthmus Size: Stable 1.0 cm. Composition: Solid Echogenicity: Hypoechoic Shape: wider than tall. Margins: Smooth Echogenic foci: None Total points: 4 ACR TI-RADS category: 4, moderately suspicious Nodule number: 3 Location: Left mid/superior Size: Stable 0.8 cm. Composition: Solid Echogenicity: Hypoechoic Shape: wider than tall. Margins: Smooth Echogenic foci: None Total points: 4 ACR TI-RADS category: 4, moderately suspicious Nodule number: 4 Location: Left inferior Size: Stable 1.4 cm. Composition: Solid Echogenicity: Hypoechoic Shape: wider than tall. Margins: Smooth Echogenic foci: Punctate Total points: 7 ACR TI-RADS category: 5, highly suspicious Additional subcentimeter thyroid nodules are present and not significantly changed compared to prior. IMPRESSION: Multiple thyroid nodules with the most suspicious listed above. These are overall stable compared to prior exam. Recommend continued follow-up based on below criteria. ACR TI-RADS definitions and recommendations: TI-RADS 1 (benign): 0 points. FNA not needed. TI-RADS 2 (not suspicious): 2 points. FNA not needed. TI-RADS 3: 3 points. * FNA if 2.5 cm or larger, follow up if 1.5 cm or larger (at 1, 3, and 5 years). TI-RADS 4: 4-6 points. * FNA if 1.5 cm or larger, follow up if 1 cm or larger (at 1, 2, 3, and 5 years). TI-RADS 5: 7 points or more. * FNA if 1 cm or larger, follow up if 0.5 cm or larger (every year for 5 years). Dictated by: Kaiser Huitron M.D. on 10/24/2025 at 8:33 Approved by: Kaiser Huitron M.D. on 10/24/2025 at 8:36
== END ==
LOC: US 13:52
PROVIDERS: Family Provider Obstetrics & Gynecology; PCP Family Medicine; Referring Provider Physician Assistant; Visit Provider Physician Assistant
DX: E04.2 Nontoxic multinodular goiter (principal); R79.89 Other specified abnormal findings of blood chemistry; Z80.8 Family history of malignant neoplasm of other organs or systems
CPT/HCPCS: 76536

== ENCOUNTER → 2025-11-01 10:49 | Outpatient (CLI) | payer OTHER, SELFPAY ==
[2025-11-01 12:27] LABS: Vitamin D 25 Hydroxy (D3) 43.3 ng/mL (30.0-100.0)
[2025-11-01 12:59] LABS: Vitamin B12 405 pg/mL (239-931)
== END ==
PROVIDERS: PCP Nurse Practitioner Family; Referring Provider Nurse Practitioner Family; Visit Provider Nurse Practitioner Family
DX: Z13.21 Encounter for screening for nutritional disorder (principal); R53.83 Other fatigue
CPT/HCPCS: 36415; 82306; 82607